=== PATIENT | female | born 1935 | race Caucasian/White ===

== ENCOUNTER 2018-09-25 10:58 | Emergency (ER) | payer OTHER, BC ==
[2018-09-25 13:18] LABS: Absolute Lymphocytes (CBC) 2.6 K/uL (0.7-4.9); Absolute Monocytes 0.6 K/uL (0.1-1.3); Absolute Neutrophil 3.6 K/uL (1.8-8.0); Basophils % 0.7 % (0-1.3); Eosinophils % 0.7 % (0-4.4); Hematocrit 38.6 % (36.0-45.0); MPV 7.9 fL (7.6-11.3); Monocytes % 8.3 % (3.3-12.3); RBC Red Blood Cell Count 4.17 M/uL (3.86-4.86)
[2018-09-25 13:19] LABS: Protime INR 1.14
[2018-09-25 13:34] LABS: Albumin 3.6 g/dL (3.4-5.0); Bilirubin Direct 0.2 mg/dL (0-0.2); Bilirubin Total 0.3 mg/dL (0.2-1.0); Magnesium 2.5 mg/dL (1.8-2.4); Potassium 3.5 mmol/L (3.5-5.1); Protein, Total 6.9 g/dL (6.4-8.2); Troponin (Emerg Dept Use Only) 0.04 ng/mL (0.0-0.045)
--- NOTE | 2018-09-25 13:38 | RAD REPORT ---
EXAM DESCRIPTION: RAD - Chest Single View - 09/25/2018 1:23 pm CLINICAL HISTORY: MALAISE Chest pain. COMPARISON: CHEST SINGLE VIEW dated 12/18/2014; CHEST SINGLE VIEW dated 12/17/2014; CHEST PA AND LAT 2 V IEW dated 08/14/2011; CHEST PA AND LAT 2 VIEW dated 07/18/2009 FINDINGS: Portable technique limits examination quality. Small calcified granuloma is present in the right lower lung. The lungs are otherwise emphysematous b ut clear. The heart is normal in size. No displaced fractures.Mildly tortuous thoracic aorta. IMPRESSION: No acute intrathoracic process suspected.
--- NOTE | 2018-09-25 14:44 | EKG ---
Test Date: 2018-09-25 Test Time: 13:10:46 Substation Superintendent: PETER MEASUREMENT RESULTS: Intervals: Rate: 77 KS: 178 QRSD: 138 QT: 434 QTc: 491 [place]: P: 62 KS: 178 QRS: -61 T: 74 INTERPRETIVE STATEMENTS: Normal sinus rhythm Left axis deviation Left bundle branch block Abnormal ECG Compared to ECG 12/18/2014 05:43:43 No significant changes Electronically Signed On 09-25-18 14:43:33 CDT by Ye Castañeda
[2018-09-25 16:11] LABS: Urine Blood 2+ (NEG); Urine Glucose NEGATIVE (NEG); Urine Protein NEGATIVE (NEG); Urine Specific Gravity 1.025 (1.005-1.030)
[2018-09-25 16:39] LABS: Urine Amorphous Sediment 1+ /HPF (NONE SEEN); Urine Bacteria >50 /HPF (<20); Urine Culture Reflex Order REFLEXED
--- NOTE | 2018-09-25 16:49 | ER ---
Nurse's Notes [facility] [place] Name: January Guidry Age: 83 yrs Sex: Female : 1935 Arrival Date: 09/25/2018 Time: 10:59 Bed 4 Private MD: Diagnosis: Cystitis Presentation: 09/25 11:08 Presenting complaint: Patient states: Decreased appetite and nausea that began 4 days ss ago. Transition of care: patient was not received from another setting of care. Onset of symptoms was September 21, 2018. Risk Assessment: Do you want to hurt yourself or someone else? Patient reports no desire to harm self or others. Initial Sepsis Screen: Does the patient meet any 2 criteria? No. Patient's initial sepsis screen is negative. Does the patient have a suspected source of infection? No. Patient's initial sepsis screen is negative. Care prior to arrival: None. 11:08 Method Of Arrival: Wheelchair ss 11:08 Acuity: ИРИНА 3 ss Historical: - Allergies: 11:10 No Known Allergies; ss - Home Meds: 14:40 levothyroxine 75 mcg tab 1 tab once daily [Active]; Entresto 49-51 mg oral tab 1 tab 2 tw2 times per day [Active]; carvedilol 6.25 mg oral tab 1 tab 2 times per day [Active]; Tylenol-Codeine #4 300-60 mg Oral tab 1 tab every 4 hours [Active]; - PMHx: 14:41 Hypertension; Hypothyroidism; tw2 - PSHx: 11:10 None; ss - Immunization history:: Adult Immunizations up to date. - Social history:: Smoking status: Patient/guardian denies using tobacco. - Ebola Screening: : Patient denies exposure to infectious person Patient denies travel to an Ebola-affected area in the 21 days before illness onset. Screenin:01 Abuse screen: Denies threats or abuse. Nutritional screening: No deficits noted. tw2 Tuberculosis screening: No symptoms or risk factors identified. Fall Risk Secondary diagnosis (15 points) impaired mobility. Assessment: 11:58 General: Appears in no apparent distress. well groomed, Behavior is calm, appropriate tw2 for age. Pain: Denies pain. Neuro: Level of Consciousness is awake, alert, obeys commands, Oriented to person, place, time, situation. Cardiovascular: Heart tones S1 S2 Patient's skin is warm and dry. Respiratory: Airway is patent Respiratory effort is even, unlabored, Respiratory pattern is regular, symmetrical, Breath sounds are clear bilaterally. GI: No signs and/or symptoms were reported involving the gastrointestinal system. Abdomen is flat, non-distended, Bowel sounds present X 4 quads. GI: Parent/caregiver reports the patient having decreased appetite. : No signs and/or symptoms were reported regarding the genitourinary system. EENT: No signs and/or symptoms were reported regarding the EENT system. Derm: No signs and/or symptoms reported regarding the dermatologic system. Skin is fragile, is thin. Musculoskeletal: Range of motion: intact in all extremities. 12:00 Reassessment: pt refusing all diagnostic testings at this time, educated as to the tw2 necessity of the testing. provider notified. pt unable to urinate at this time states "i have this testing every month i dont know why we need to do all this unnecessary testing, i went through this with my and i said i wasn't going to come here". 13:00 Reassessment: Patient appears in no apparent distress at this time. No changes from tw2 previously documented assessment. Patient and/or family updated on plan of care and expected duration. Pain level reassessed. Patient is alert, oriented x 3, equal unlabored respirations, skin warm/dry/pink. 14:01 Reassessment: Patient appears in no apparent distress at this time. No changes from tw2 previously documented assessment. Patient and/or family updated on plan of care and expected duration. Pain level reassessed. Patient is alert, oriented x 3, equal unlabored respirations, skin warm/dry/pink. 15:24 Reassessment: Patient appears in no apparent distress at this time. No changes from tw2 previously documented assessment. Patient and/or family updated on plan of care and expected duration. Pain level reassessed. Patient is alert, oriented x 3, equal unlabored respirations, skin warm/dry/pink. 16:07 Reassessment: pt refusing to be placed back in bed at this time and refusing vs tw2 equipment at this time, provider notified. urine completed and sent. 17:02 Reassessment: Pt upset because of wait time in ER for results of test she believed were ss unnecessary. Dr. Caldera at bedside speaking with patient and son. Pt was upset because she was diagnosed with a UTI and believed that testing should have started with that. Vital Signs: 11:10 BP 103 / 60; Pulse 74; Resp 16; Temp 98.2(TE); Pulse Ox 94% on R/A; Weight 69.85 kg; ss Height 5 ft. 2 in. (157.48 cm); Pain 0/10; 12:00 BP 99 / 53; Pulse 67; Resp 17; Pulse Ox 94% on R/A; tw2 13:00 BP 115 / 56; Pulse 72; Resp 17; Pulse Ox 94% on R/A; tw2 13:59 BP 108 / 63; Pulse 78; Resp 17; Pulse Ox 94% on R/A; tw2 15:24 BP 124 / 54; Pulse 74; Resp 17; Pulse Ox 99% on R/A; tw2 11:10 Body Mass Index 28.17 (69.85 kg, 157.48 cm) ED Course: 10:59 Patient arrived in ED. as 11:10 Triage completed. ss 11:10 Arm band placed on right wrist. ss 11:46 Bed in low position. Call light in reach. Side rails up X2. Adult w/ patient. Cardiac tw2 monitor on. Pulse ox on. NIBP on. Warm blanket given. 11:50 Damien Caldera MD is Attending Physician. 13:02 Maria Luisa Gaytan, WAI is Primary Nurse. tw2 13:08 Inserted saline lock: 22 gauge in right antecubital area, using aseptic technique. tw2 Blood collected. 13:18 X-ray completed. Portable x-ray completed in exam room. jr1 13:23 XRAY Chest (1 view) In Process Unspecified. EDMS 16:00 Urine collected: clean catch specimen, carl colored. dh3 17:01 No provider procedures requiring assistance completed. IV discontinued, intact, ss bleeding controlled, No redness/swelling at site. Pressure dressing applied. Administered Medications: No medications were administered Outcome: 16:49 Discharge ordered by . 17:01 Discharged to home with family. ss 17:01 Condition: good 17:01 Discharge instructions given to patient, family, Instructed on discharge instructions, follow up and referral plans. medication usage, Demonstrated understanding of instructions, follow-up care, medications, Prescriptions given X 1. 17:03 Patient left the ED. ss Signatures: Dispatcher [employer] EDMS Lesly Crisostomo jr1 Tianna Blair Shelby, RN RN Maria Luisa Gaytan RN RN 2 Key Jamil 3 Damien Caldera MD MD
--- NOTE | 2018-09-25 16:49 | EDPHYS ---
Physician Documentation [facility] Name: January Guidry Age: 83 yrs Sex: Female : 1935 Arrival Date: 09/25/2018 Time: 10:59 Bed 4 Private MD: ED Physician Damien Caldera HPI: 09/25 16:45 This 83 yrs old Female presents to ER via Wheelchair with complaints of gs Decreased Appetite. 16:45 general weakness, not feeling for 1 week. Onset: The symptoms/episode began/occurred 1 gs week(s) ago. Severity of symptoms: At their worst the symptoms were severe in the emergency department the symptoms are unchanged. The patient has experienced similar episodes in the past, a few times. Historical: - Allergies: 11:10 No Known Allergies; ss - Home Meds: 14:40 levothyroxine 75 mcg tab 1 tab once daily [Active]; Entresto 49-51 mg oral tab 1 tab 2 tw2 times per day [Active]; carvedilol 6.25 mg oral tab 1 tab 2 times per day [Active]; Tylenol-Codeine #4 300-60 mg Oral tab 1 tab every 4 hours [Active]; - PMHx: 14:41 Hypertension; Hypothyroidism; tw2 - PSHx: 11:10 None; ss - Immunization history:: Adult Immunizations up to date. - Social history:: Smoking status: Patient/guardian denies using tobacco. - Ebola Screening: : Patient denies exposure to infectious person Patient denies travel to an Ebola-affected area in the 21 days before illness onset. ROS: 16:45 All other systems are negative. gs 16:49 Constitutional: Negative for fever. gs 16:49 Cardiovascular: Negative for chest pain. 16:49 Respiratory: Negative for shortness of breath. 16:49 Abdomen/GI: Negative for vomiting, diarrhea. 16:49 Neuro: Negative for altered mental status. 16:49 Psych: Negative for depression. Exam: 16:45 Head/Face: Normocephalic, atraumatic. Eyes: Pupils equal round and reactive to light, gs extra-ocular motions intact. Lids and lashes normal. Conjunctiva and sclera are non-icteric and not injected. Cornea within normal limits. Periorbital areas with no swelling, redness, or edema. ENT: Nares patent. No nasal discharge, no septal abnormalities noted. Tympanic membranes are normal and external auditory canals are clear. Oropharynx with no redness, swelling, or masses, exudates, or evidence of obstruction, uvula midline. Mucous membranes moist. Neck: Trachea midline, no thyromegaly or masses palpated, and no cervical lymphadenopathy. Supple, full range of motion without nuchal rigidity, or vertebral point tenderness. No Meningismus. Chest/axilla: Normal chest wall appearance and motion. Nontender with no deformity. No lesions are appreciated. Cardiovascular: Regular rate and rhythm with a normal S1 and S2. No gallops, murmurs, or rubs. Normal PMI, no JVD. No pulse deficits. Respiratory: Lungs have equal breath sounds bilaterally, clear to auscultation and percussion. No rales, rhonchi or wheezes noted. No increased work of breathing, no retractions or nasal flaring. Abdomen/GI: Soft, non-tender, with normal bowel sounds. No distension or tympany. No guarding or rebound. No evidence of tenderness throughout. Back: No spinal tenderness. No costovertebral tenderness. Full range of motion. Skin: Warm, dry with normal turgor. Normal color with no rashes, no lesions, and no evidence of cellulitis. MS/ Extremity: Pulses equal, no cyanosis. Neurovascular intact. Full, normal range of motion. Neuro: Awake and alert, GCS 15, oriented to person, place, time, and situation. Cranial nerves II-XII grossly intact. Motor strength 5/5 in all extremities. Sensory grossly intact. Cerebellar exam normal. Normal gait. 16:45 Constitutional: The patient appears alert, awake, pale. 16:45 ECG was reviewed by the Attending Physician. Vital Signs: 11:10 BP 103 / 60; Pulse 74; Resp 16; Temp 98.2(TE); Pulse Ox 94% on R/A; Weight 69.85 kg; ss Height 5 ft. 2 in. (157.48 cm); Pain 0/10; 12:00 BP 99 / 53; Pulse 67; Resp 17; Pulse Ox 94% on R/A; tw2 13:00 BP 115 / 56; Pulse 72; Resp 17; Pulse Ox 94% on R/A; tw2 13:59 BP 108 / 63; Pulse 78; Resp 17; Pulse Ox 94% on R/A; tw2 15:24 BP 124 / 54; Pulse 74; Resp 17; Pulse Ox 99% on R/A; tw2 11:10 Body Mass Index 28.17 (69.85 kg, 157.48 cm) ss MDM: 12:42 Patient medically screened. gs 16:45 Differential Diagnosis sepsis, uti, mi. Data reviewed: vital signs, nurses notes, lab gs test result(s), EKG, radiologic studies. Counseling: I had a detailed discussion with the patient and/or guardian regarding: the historical points, exam findings, and any diagnostic results supporting the discharge/admit diagnosis, radiology results, the need for outpatient follow up. Response to treatment: the patient's symptoms have mildly improved after treatment, wants to go home. 09/25 12:40 Order name: Lipase; Complete Time: 14:29 09/25 12:40 Order name: Basic Metabolic Panel; Complete Time: 14:29 09/25 12:40 Order name: CBC with Diff; Complete Time: 14:29 09/25 12:40 Order name: LFT's; Complete Time: 14:29 09/25 12:40 Order name: Magnesium; Complete Time: 14:29 09/25 12:40 Order name: NT PRO-BNP; Complete Time: 14:29 09/25 12:40 Order name: PT-INR; Complete Time: 14:29 09/25 12:40 Order name: Troponin (emerg Dept Use Only); Complete Time: 14:29 09/25 12:40 Order name: XRAY Chest (1 view); Complete Time: 14:29 09/25 12:40 Order name: EKG; Complete Time: 12:42 09/25 12:40 Order name: Cardiac monitoring; Complete Time: 13:02 09/25 12:40 Order name: Urine Microscopic Only; Complete Time: 16:45 09/25 16:07 Order name: Urine Dipstick--Ancillary (enter results); Complete Time: 16:23 09/25 16:42 Order name: Urine Culture EDWY 09/25 12:40 Order name: EKG - Nurse/Tech; Complete Time: 13:02 09/25 12:40 Order name: IV Saline Lock; Complete Time: 13:10 09/25 12:40 Order name: Labs collected and sent; Complete Time: 13:10 09/25 12:40 Order name: O2 Per Protocol; Complete Time: 13:03 09/25 12:40 Order name: O2 Sat Monitoring; Complete Time: 13:02 09/25 12:40 Order name: Urine Dipstick-Ancillary (obtain specimen); Complete Time: 16:08 EC:45 Rate is 77 beats/min. Rhythm is regular. DC interval is normal. QRS interval is gs prolonged. T waves are Normal. Clinical impression: Abnormal EKG without significant change. Interpreted by me. Administered Medications: No medications were administered Disposition: 09/25/18 16:49 Discharged to Home. Impression: Cystitis. - Condition is Stable. - Discharge Instructions: Urinary Tract Infection, Adult. - Prescriptions for Keflex 500 mg Oral Capsule - take 1 capsule by ORAL route every 12 hours for 10 days; 20 capsule. - Medication Reconciliation Form, Thank You Letter, Antibiotic Education, Prescription Opioid Use form. - Follow up: Private Physician; When: 1 - 2 days; Reason: Re-evaluation by your physician. Signatures: Dispatcher [employer] EDWY Alisa Shetty RN RN ss Maria Luisa Gaytan RN RN 2 Damien Caldera MD MD Corrections: (The following items were deleted from the chart) 17:03 16:49 09/25/2018 16:49 Discharged to Home. Impression: Cystitis. Condition is Stable. ss Forms are Medication Reconciliation Form, Thank You Letter, Antibiotic Education, Prescription Opioid Use. Follow up: Private Physician; When: 1 - 2 days; Reason: Re-evaluation by your physician.
[2018-09-25 17:18] VITALS: TEMP 98.2
[2018-09-25 17:23] VITALS: BP 124/54; O2SAT 99
== END 2018-09-25 17:03 | disposition home or self-care (01) ==
LOC: ER 10:58
DX: N30.90 Cystitis, unspecified without hematuria (principal); I10 Essential (primary) hypertension; E03.9 Hypothyroidism, unspecified
CPT/HCPCS: 36415; 71045; 80048; 80076; 81003; 81015; 83690; 83735; 83880; 84484; 85025; 85610; 87086; 87088; 93005; 99284